=== PATIENT | male | born 1935 | race Caucasian/White ===

== ENCOUNTER 2025-05-23 17:59 | Inpatient (IN) | payer MEDICARE, BC ==
[~2025-05-23] VITALS: Ht 175.3 cm; Wt 80.7 kg
[2025-05-23] MEDS ORDERED: LOSA1TAB42 PO (18:42)
[2025-05-23] MEDS ORDERED: XTANDI PO (18:42)
[2025-05-23] MEDS ORDERED: oxyCODONE/APAP (5/325 MG) 1 UDTAB TABLET ONE (18:48)
[2025-05-23] MEDS: oxyCODONE/APAP (5/325 MG) 1 UDTAB TABLET PO ONE (19:01)
[2025-05-23 20:23] LABS: CALCIUM, SERUM 8.7 mg/dL (8.5-10.1); CREATININE 2.1 mg/dL (0.6-1.3); SODIUM SERUM 137 mmol/L (136-145); UREA NITROGEN, BLOOD 44 mg/dL (7-18)
[2025-05-23] MEDS ORDERED: KETOROLAC TROMETHAMINE INJ 30 MG/ML VIAL ONE (20:28)
[2025-05-23] MEDS: KETOROLAC TROMETHAMINE INJ 30 MG/ML VIAL IV ONE (20:30)
[2025-05-23] MEDS ORDERED: LATA7.5D EACHEYE (20:34)
[2025-05-23 20:37] LABS: ASPARTATE AMINOTRANSFERASE 19 U/L (15-37); TOTAL PROTEIN, SERUM 6.6 g/dL (6.4-8.2)
[2025-05-23 21:08] LABS: PLATELET COUNT (AUTO) 252 K/uL (150-450); RED BLOOD CELL COUNT(AUTO) 3.64 MIL/uL (4.5-6.0); RED CELL DISTRIBUTION WIDTH 13.6 % (11.5-15.0); WHITE BLOOD COUNT (AUTO) 17.3 K/uL (4.3-11.0)
[2025-05-23 21:25] LABS: INR 0.98 (0.91-1.10)
[2025-05-23 21:30] VITALS: BP 133/76; TEMP 97.5; O2SAT 96
[2025-05-23] MEDS: IV NS 0.9% 1,000 ML IV PRN (22:08)
[2025-05-24] MEDS: oxyCODONE/APAP (5/325 MG) 1 UDTAB TABLET PO ONE (01:14)
[2025-05-24 07:25] LABS: PLATELET COUNT (AUTO) 235 K/uL (150-450); RED BLOOD CELL COUNT(AUTO) 2.85 MIL/uL (4.5-6.0); RED CELL DISTRIBUTION WIDTH 12.8 % (11.5-15.0); WHITE BLOOD COUNT (AUTO) 11.3 K/uL (4.3-11.0)
[2025-05-24 07:30] VITALS: BP 112/64; TEMP 97.9; O2SAT 97
[2025-05-24 07:34] LABS: INR 1.01 (0.91-1.10)
[2025-05-24 07:36] LABS: CALCIUM, SERUM 8.6 mg/dL (8.5-10.1); CREATININE 2.3 mg/dL (0.6-1.3); PHOSPHORUS 3.3 mg/dL (2.5-4.9); SODIUM SERUM 140.0 mmol/L (136-145); UREA NITROGEN, BLOOD 49.0 mg/dL (7-18)
[2025-05-24] MEDS: HYDROCHLOROTHIAZIDE 25 MG TABLET PO SCH (09:00)
[2025-05-24] MEDS: LOSARTAN POTASSIUM 50 MG TABLET PO SCH (09:00)
[2025-05-24] MEDS: PANTOPRAZOLE 40 MG VIAL IV SCH (10:22)
[2025-05-24] MEDS: SODIUM ZIRCONIUM CYCLOSILICATE 10 GM POWD.PACK PO ONE (11:08)
[2025-05-24] MEDS ORDERED: ANESTHESIA TRAY IN PYXIS 1 EA TRAY MC ONE (14:11)
[2025-05-24] MEDS ORDERED: BUPIVACAINE 0.5 % PF 150 MG/30 ML VIAL ONE (14:11)
[2025-05-24 15:34] LABS: APPEARANCE,URINE CLEAR (CLEAR); BLOOD, URINE NEGATIVE Ery/uL (NEGATIVE); LEUKOCYTE ESTERASE ,URINE NEGATIVE (NEGATIVE); NITRITE, URINE NEGATIVE (NEGATIVE); UGLUCOSE NEGATIVE (NEGATIVE)
[2025-05-24] MEDS: Calcium Gluconate 0.465 MEQ/ML VIAL IV STA (15:48)
[2025-05-24 15:56] LABS: ADD URINE CULTURE YES; SQUAMOUS EPITHELIAL CELL,UR Moderate /HPF (None Seen)
[2025-05-24 15:59] LABS: CREATININE, URINE 252.1 MG/DL (30.0-125.0); URINE SODIUM, RANDOM 9.0 mmol/l (40-220); URINE TOTAL PROTEIN 62.6 mg/dL (0-11.9)
[2025-05-24 16:00] VITALS: BP 113/67; TEMP 97.9; O2SAT 98
[2025-05-24] MEDS: Calcium Gluconate 1GM/10ML 4.65 MEQ in IV NS 0.9% 100 ML IV ONE (16:18)
[2025-05-24] MEDS: INSULIN REGULAR, HUMAN 100 UNIT/ML 10 ML VIAL IV STA (16:49)
[2025-05-24] MEDS: IV D5W 1,000 ML IV ONE (16:49)
[2025-05-24] MEDS ORDERED: FENTANYL PF 250MCG/5ML AMPUL ONE (17:11)
[2025-05-24] MEDS ORDERED: TRANEXAMIC ACID 1,000 MG/10 ML VIAL ONE (17:12)
[2025-05-24] MEDS ORDERED: ROCURONIUM BROMIDE 50 MG/5 ML ONE (17:12)
[2025-05-24] MEDS ORDERED: BUPIVACAINE 0.25% 75 MG/30 ML VIAL ONE (17:13)
[2025-05-24] MEDS ORDERED: LABETALOL HCL IV 100MG VIAL ONE (17:35)
[2025-05-24 17:44] LABS: EOSINOPHIL,URINE None Seen
[2025-05-24 20:00] VITALS: BP 115/87; TEMP 98.7; O2SAT 96
[2025-05-24] MEDS: LATANOPROST EYE DROP 0.005% 2.5 ML BOTTLE EACHEYE SCH (22:30)
[2025-05-25] MEDS: CEFAZOLIN 2 GM in IV D5W 100 ML IV SCH (01:33)
[2025-05-25] MEDS ORDERED: CEFAZOLIN 1 GM VIAL IV SCH ×2 (02:00→10:00)
[2025-05-25 07:15] LABS: PLATELET COUNT (AUTO) 165 K/uL (150-450); RED BLOOD CELL COUNT(AUTO) 2.18 MIL/uL (4.5-6.0); RED CELL DISTRIBUTION WIDTH 13.2 % (11.5-15.0); WHITE BLOOD COUNT (AUTO) 8.0 K/uL (4.3-11.0)
[2025-05-25 07:26] LABS: ASPARTATE AMINOTRANSFERASE 55.0 U/L (15-37); CALCIUM, SERUM 8.3 mg/dL (8.5-10.1); CREATININE 2.6 mg/dL (0.6-1.3); PHOSPHORUS 4.2 mg/dL (2.5-4.9); SODIUM SERUM 141.0 mmol/L (136-145); TOTAL PROTEIN, SERUM 5.0 g/dL (6.4-8.2); UREA NITROGEN, BLOOD 55.0 mg/dL (7-18)
[2025-05-25 07:29] LABS: CREATINE KINASE, TOTAL 710.0 U/L (39-308)
[2025-05-25] MEDS: PANTOPRAZOLE 40 MG TABLET.DR PO SCH (09:00)
[2025-05-25 10:02] VITALS: BP 112/59; TEMP 97.5; O2SAT 96
[2025-05-25] MEDS: KETOROLAC TROMETHAMINE INJ 30 MG/ML VIAL IV PRN (10:10)
[2025-05-25] MEDS: Calcium Gluconate 1GM/10ML 4.65 MEQ in IV NS 0.9% 100 ML IV ONE (18:36)
[2025-05-25 20:00] VITALS: BP 93/60; TEMP 97.5; O2SAT 94
[2025-05-25] MEDS: ONDANSETRON HCL/PF 4 MG/2 ML VIAL IVP PRN (21:22)
[2025-05-26] MEDS ORDERED: CEFTRIAXONE 1 G in IV D5W 50 ML IV SCH (01:00)
[2025-05-26] MEDS ORDERED: HEPARIN SODIUM, PORCINE 5000 UNITS/1 ML VIAL SQ SCH (01:00)
[2025-05-26] MEDS ORDERED: NOREPINEPHRINE 8MG/250ML RTU 250 ML IV ONE (06:09)
[2025-05-26] MEDS ORDERED: EPINEPHRINE (1:10,000) SYRINGE 1 MG/10 ML DISP.SYRIN IVP ONE ×2 (06:37)
[2025-05-26 08:08] LABS: PTH, INTACT 56 pg/mL (15-65)
[2025-05-30 11:12] LABS: *SPE A/G RATIO 1.3 (0.7-1.7); *SPE ALBUMIN 2.6 g/dL (2.9-4.4); *SPE ALPHA-1-GLOBULIN 0.4 g/dL (0.0-0.4); *SPE ALPHA-2-GLOBULIN 0.6 g/dL (0.4-1.0); *SPE BETA GLOBULIN 0.6 g/dL (0.7-1.3); *SPE GLOBULIN, TOTAL 2.0 g/dL (2.2-3.9); *SPE M-SPIKE Not Observed g/dL (Not Observed); *SPE PROTEIN TOTAL 4.6 g/dL (6.0-8.5); *SPEGAMMA GLOBULIN 0.5 g/dL (0.4-1.8)
== END 2025-05-26 06:38 | DRG 480 ==
LOC: ER 18:03 → MED 21:12 → ICU 05-26 00:43
PROVIDERS: ADMIT Nurse Practitioner Family; ATTEND Internal Medicine
PROC: 0QS706Z Reposition Left Upper Femur with Intramedullary Internal Fixation Device, Open Approach (ICD-10-PCS; principal; 2025-05-24 17:00)
PROC: 0BH17EZ Insertion of Endotracheal Airway into Trachea, Via Natural or Artificial Opening (ICD-10-PCS; 2025-05-26)
PROC: 5A12012 Performance of Cardiac Output, Single, Manual (ICD-10-PCS; 2025-05-26)
PROC: 5A1935Z Respiratory Ventilation, Less than 24 Consecutive Hours (ICD-10-PCS; 2025-05-26)
DX: S72.142A Displaced intertrochanteric fracture of left femur, initial encounter for closed fracture (principal); N17.0 Acute kidney failure with tubular necrosis; C79.9 Secondary malignant neoplasm of unspecified site; N18.4 Chronic kidney disease, stage 4 (severe); E86.0 Dehydration; C61 Malignant neoplasm of prostate; D64.9 Anemia, unspecified; I46.9 Cardiac arrest, cause unspecified; I12.9 Hypertensive chronic kidney disease with stage 1 through stage 4 chronic kidney disease, or unspecified chronic kidney disease; M16.0 Bilateral primary osteoarthritis of hip; W01.0XXA Fall on same level from slipping, tripping and stumbling without subsequent striking against object, initial encounter; N20.0 Calculus of kidney; Y92.009 Unspecified place in unspecified non-institutional (private) residence as the place of occurrence of the external cause; Z85.46 Personal history of malignant neoplasm of prostate; S50.312A Abrasion of left elbow, initial encounter; E87.5 Hyperkalemia; Z79.899 Other long term (current) drug therapy
CPT/HCPCS: 36415; 71045-TC; 73502; 73552; 80048-TC; 80053-TC; 80076-TC; 81001; 82550-TC; 82553; 82570-TC; 82962-TC; 83735-TC; 83970; 84100-TC; 84132-TC; 84155; 84165; 84300-TC; 85025-TC; 85610-TC; 85730-TC; 86850-TC; 87086-TC; 93307-TC; 97116-TC; 97530-TC; A4223; A6209; A6223; A6253; A6254; A6403; C1713; G0378; J0169; J0360; J0461; J0612; J0690; J0696; J1815; J1885; J2405; J2470; J2704; J3010; J3490; J7030; J7060; J7070